=== PATIENT | male | born 1930 | race Asian ===

== ENCOUNTER 2017-10-26 10:14 | Inpatient (IN) | payer MEDICARE, OTHER ==
[~2017-10-26] VITALS: Ht 195.6 cm; Wt 63.5 kg
--- NOTE | 2017-10-26 10:22 | NUR ---
MED RECON WAS PREPARED WITH THE HELP OF GRAND SON LOOKING INTO PT DAILY BEEF BONER THAT IS CHADIAN/[place]IBR[place]ARIAN.
[2017-10-26] MEDS ORDERED: ENOXAPARIN SODIUM 30 MG/0.3 ML DISP.SYRIN SUBCUT ONE (10:30)
[2017-10-26] MEDS ORDERED: ASPIRIN 325 MG TABLET PO ONE (10:30)
[2017-10-26] MEDS ORDERED: METOPROLOL TARTRATE 50 MG TABLET PO ONE (10:30)
[2017-10-26] MEDS ORDERED: NITROGLYCERIN OINT 1 GM PACKET TP ONE ×2 (10:30→10:34)
[2017-10-26] MEDS ORDERED: ASPIRIN 325 MG TABLET ONE (10:32)
[2017-10-26] MEDS ORDERED: METOPROLOL TARTRATE 50 MG TABLET ONE (10:33)
[2017-10-26] MEDS ORDERED: ENOXAPARIN SODIUM 80 MG/0.8 ML DISP.SYRIN SQ ONE (10:37)
[2017-10-26] MEDS ORDERED: CLON0.1T PO (10:40)
[2017-10-26] MEDS ORDERED: VALS40TA4 PO (10:40)
[2017-10-26] MEDS ORDERED: ATEN25TA PO (10:40)
[2017-10-26] MEDS ORDERED: ASPI-1169 PO (10:40)
--- NOTE | 2017-10-26 10:40 | NUR ---
MED RECON PREPARED TO THE BEST KNOWLEDGE OF THE GRANDSON LOOKING AT THE PT DAILY PLANNERR WHICH IS CHINESES LANGUAGE.
[2017-10-26 10:48] LABS: BASOPHILS % (AUTO) 0.4 % (0.0-2.0); EOSINOPHILS % (AUTO) 0.6 % (0.0-7.0); HEMATOCRIT 38.1 % (36.7-47.1); LYMPHOCYTES # (AUTO) 0.9 K/uL (20.0-40.0); LYMPHOCYTES % (AUTO) 19.6 % (20.5-51.5); MEAN CORPUSCULAR HEMOGLOBIN 32.8 uug (23.8-33.4); MEAN CORPUSCULAR HGB CONC 34 g/dL (32.5-36.3); MEAN CORPUSCULAR VOLUME 95.7 fL (73.0-96.2); MONOCYTES # (AUTO) 0.4 K/uL (2.0-10.0); MONOCYTES % (AUTO) 8.4 % (0.0-11.0); NEUTROPHILS # (AUTO) 3.3 K/uL (1.8-8.9); PLATELET COUNT (AUTO) 146 K/uL (152-348); RED BLOOD CELL COUNT(AUTO) 3.97 MIL/uL (4.06-5.63); WHITE BLOOD COUNT (AUTO) 4.6 K/uL (3.6-10.2)
[2017-10-26 10:54] LABS: CARBON DIOXIDE 24 mmol/L (21-32); CHLORIDE 106 mmol/L (98-107); CREATININE 1.8 mg/dL (0.6-1.3); GLUCOSE 155 mg/dL (74-106); POTASSIUM 4.5 mmol/L (3.5-5.1); UREA NITROGEN, BLOOD 36 mg/dL (7-18)
[2017-10-26 11:09] LABS: ALANINE AMINOTRANSFERASE 20 U/L (16-63); ALKALINE PHOSPHATASE 41 U/L (50-136); ASPARTATE AMINOTRANSFERASE 15 U/L (15-37); BILIRUBIN,DIRECT 0.1 mg/dL (0.0-0.2); BILIRUBIN,TOTAL 0.7 mg/dL (0.2-1.0); TOTAL PROTEIN, SERUM 7.2 g/dL (6.4-8.2)
--- NOTE | 2017-10-26 12:21 | NUR ---
REPORT GIVEN TO ANTOLIN. PENDING TRANSFER TO TELE UNIT.
--- NOTE | 2017-10-26 12:30 | NUR ---
KRISTINA PALMER ENVELOPE STAMPING MACHINE OPERATOR AT BEDSIDE.
--- NOTE | 2017-10-26 12:38 | NUR ---
Pt admitted to Tele floor under Jason Segundo NP. Belongings list completed.
[2017-10-26 13:00] VITALS: BP 133/65
[2017-10-26] MEDS ORDERED: IV NS 1000 ML 1,000 ML IV PRN (13:07)
[2017-10-26] MEDS ORDERED: ACETAMINOPHEN 325 MG TABLET PO PRN (13:15)
[2017-10-26] MEDS ORDERED: Z GUARD REMEDY PASTE 57 GM TUBE TOP PRN (13:15)
[2017-10-26] MEDS ORDERED: NITROGLYCERIN 0.4 MG/TAB BOTTLE SL PRN (13:15)
[2017-10-26] MEDS ORDERED: HYDROCODONE/APAP 5-325MG TABLET PO PRN (13:15)
[2017-10-26] MEDS ORDERED: MAGNESIUM HYDROXIDE 30 ML LIQUID UDC PO PRN (13:15)
[2017-10-26] MEDS ORDERED: ONDANSETRON 4 MG/2 ML VIAL IV PRN (13:15)
--- NOTE | 2017-10-26 13:15 | NUR ---
NEW PATIENT FROM ER TO ROOM 219 AWAKE ALERT /SOME FORGETFUL AND DEAF/TAZLINA BUT COOPERATE WELL RAMESH WEAKNESS ON FALL AND ASPIRATION PRECAUTION BED ALARM ON AND CALL LIGHT IN REACH NO SOB OR CHEST PAIN AT THIS TIME VS TAKEN STABLE RA O2 SAT WAS 97%
--- NOTE | 2017-10-26 13:50 | NUR ---
Jacoby ARZATE SEEN LAB RESULT AND ORDER IN CHART
--- NOTE | 2017-10-26 14:00 | NUR ---
2 D ECCHO CARDIOGRAM AT BEDSIDE DAYA PROCEDURE WELL
[2017-10-26 16:05] VITALS: BP 115/61
--- NOTE | 2017-10-26 17:00 | NUR ---
DR TAM SEEN PATIENT AND FAMILY NEW ORDER FOR LAB AND STRESS TEST IN AM NPO AFTER MID NIGHT EXPLAINED TO PATIENT VERBALIZES UNDERSTAND EAT DINNER WELL NO PAIN OR SOB AT THIS TIME
[2017-10-26 17:32] LABS: *CREATININE,URINE 55.6 mg/dL (30-125)
--- NOTE | 2017-10-26 18:00 | NUR ---
HEMODYNAMIC STATUS STABLE NO ACUTE DISTRESS SAFETY MEASURE PROVIDED CALL LIGHT IN REACH
[2017-10-26 18:39] LABS: *BILIRUBIN,URIN NEGATIVE (NEGATIVE); *BLOOD, URINE Trace-lysed (NEGATIVE); *CLARITY,URINE CLEAR (CLEAR); *COLOR,URINE YELLOW (YELLOW); *KETONES,URINE NEGATIVE (NEGATIVE); *PROTEIN,URINE NEGATIVE (NEGATIVE); *UROBILINOGEN,URINE 0.2 E.U./dl (NORMAL); LEUKOCYTE ESTERASE ,URINE NEGATIVE (NEGATIVE); NITRITE, URINE NEGATIVE (NEGATIVE); PH,URINE 5.5 (5.0-8.0); UGLUCOSE NEGATIVE (NEGATIVE)
[2017-10-26 18:42] LABS: MUCUS,URINE FEW /LPF (0-FEW); RBC,URINE 0-3 /HPF (0-3); WBC,URINE 0-3 /HPF (0-3)
[2017-10-26 19:08] LABS: HEMATOCRIT 35.8 % (36.7-47.1); HEMOGLOBIN 12.3 g/dL (12.5-16.3)
[2017-10-26 20:14] VITALS: BP 113/64
[2017-10-27 00:07] VITALS: BP 107/62
[2017-10-27 04:37] VITALS: BP 135/75
--- NOTE | 2017-10-27 05:30 | NUR ---
PT DENIES ANY PAIN OVERNIGHT, KEPT NPO FOR LEXISCAN, WENT TO RADIOLOGY @ 0625 CAME BACK 0655. SLEPT WELL OVERNIGHT SINUS RHYTHM ON MONITOR. VOIDING IN URINAL NO BLOOD NOTED. WILL CONTINUE TO MONITOR,VSS,AFEBRILE
[2017-10-27 06:56] LABS: BASOPHILS % (AUTO) 0.3 % (0.0-2.0); EOSINOPHILS # (AUTO) 0.1 K/uL (0.0-0.7); EOSINOPHILS % (AUTO) 1.1 % (0.0-7.0); HEMATOCRIT 36.7 % (36.7-47.1); HEMOGLOBIN 12.6 g/dL (12.5-16.3); LYMPHOCYTES # (AUTO) 1.2 K/uL (20.0-40.0); LYMPHOCYTES % (AUTO) 19.2 % (20.5-51.5); MEAN CORPUSCULAR HGB CONC 35 g/dL (32.5-36.3); MEAN CORPUSCULAR VOLUME 95.9 fL (73.0-96.2); MONOCYTES # (AUTO) 0.6 K/uL (2.0-10.0); MONOCYTES % (AUTO) 10.4 % (0.0-11.0); NEUTROPHILS # (AUTO) 4.2 K/uL (1.8-8.9); PLATELET COUNT (AUTO) 145 K/uL (152-348); RED BLOOD CELL COUNT(AUTO) 3.83 MIL/uL (4.06-5.63); WHITE BLOOD COUNT (AUTO) 6.1 K/uL (3.6-10.2)
[2017-10-27 07:14] LABS: CARBON DIOXIDE 24 mmol/L (21-32); CHLORIDE 107 mmol/L (98-107); CHOLESTEROL 157 mg/dL (<200); CREATININE 1.7 mg/dL (0.6-1.3); GLUCOSE 110 mg/dL (74-106); HDL CHOLESTEROL 44 mg/dL (40-60); MAGNESIUM 2.1 mg/dL (1.8-2.4); PHOSPHOROUS 2.9 mg/dL (2.5-4.9); POTASSIUM 4.1 mmol/L (3.5-5.1); TRIGLYCERIDES 102 MG/DL (30-150); UREA NITROGEN, BLOOD 29 mg/dL (7-18)
[2017-10-27 07:25] LABS: THYROID STIMULATING HORMONE 1.142 mIU/mL (0.358-3.740)
[2017-10-27] MEDS ORDERED: REGADENOSON 0.4 MG/5 ML PREFILLED SYR IV ONE (08:00)
--- NOTE | 2017-10-27 08:00 | NUR ---
NPO TILL FURTHER ORDER FOR LEXISCAN, NO SOB OR CHEST PAIN
[2017-10-27] MEDS ORDERED: ASPIRIN 81 MG TAB.CHEW PO SCH (09:00)
[2017-10-27] MEDS ORDERED: ATENOLOL 25 MG TABLET PO SCH (09:00)
[2017-10-27 11:57] VITALS: BP 126/55
--- NOTE | 2017-10-27 12:00 | NUR ---
SEEN BY HOSPITALIST WITH DC ORDER, WIRER PASSENGER CAR AND DAUGHTER AT BEDSIDE MADE AWARE
[2017-10-27 12:07] LABS: *BILIRUBIN,URIN NEGATIVE (NEGATIVE); *BLOOD, URINE 1+ (NEGATIVE); *CLARITY,URINE CLEAR (CLEAR); *COLOR,URINE YELLOW (YELLOW); *KETONES,URINE NEGATIVE (NEGATIVE); *PROTEIN,URINE NEGATIVE (NEGATIVE); *UROBILINOGEN,URINE 0.2 E.U./dl (NORMAL); LEUKOCYTE ESTERASE ,URINE NEGATIVE (NEGATIVE); NITRITE, URINE NEGATIVE (NEGATIVE); PH,URINE 5.5 (5.0-8.0); UGLUCOSE NEGATIVE (NEGATIVE)
[2017-10-27 12:16] LABS: BACTERIA,URINE NONE SEEN /HPF (NONE SEEN); MUCUS,URINE FEW /LPF (0-FEW); RBC,URINE 0-3 /HPF (0-3); SQUAMOUS EPITHELIAL CELL,UR FEW /HPF (NONE SEEN); WBC,URINE 0-3 /HPF (0-3)
[2017-10-27] MEDS ORDERED: CLON0.1T PO (13:49)
--- NOTE | 2017-10-27 14:32 | NUR ---
DISCHARGED HOME STABLE WITH MEDICATION AND FOLLOW-UP INSTRUCTION WITH OWEN LOOMIS
[2017-10-27 15:16] LABS: *URINE TOTAL PROTEIN RANDOM 10.5 mg/dL (<150/24HR)
== END 2017-10-27 14:30 | disposition home or self-care (01) | DRG 305 ==
LOC: ER 10:21 → TELE 12:42 → MED 10-27 13:44
PROVIDERS: ADMIT Internal Medicine; ATTEND Internal Medicine
DX: I16.0 Hypertensive urgency (principal); D69.6 Thrombocytopenia, unspecified; I34.0 Nonrheumatic mitral (valve) insufficiency; H91.90 Unspecified hearing loss, unspecified ear; R04.0 Epistaxis; R73.9 Hyperglycemia, unspecified; I12.9 Hypertensive chronic kidney disease with stage 1 through stage 4 chronic kidney disease, or unspecified chronic kidney disease; N18.9 Chronic kidney disease, unspecified
CPT/HCPCS: 36415; 70030-TC; 71045; 76770; 78452; 83735; 84100; 84156; 84300; 84443; 85018; 85025; 85730; 87040; 93005; 93307; A4663; A9502; J1650; J2785; J7030

== ENCOUNTER 2019-03-21 20:30 | Emergency (ER) | payer MEDICARE, OTHER ==
[~2019-03-21] VITALS: Ht 172.7 cm; Wt 68.0 kg
[~2019-03-21 20:30] MED LIST: ASPI-1169 PO; ATEN25TA PO; CLON0.1T PO
--- NOTE | 2019-03-21 21:00 | NUR ---
Patient ambulated with stable gait. A/Ox4. Interpretation performed by grandson, patient speaks [place]. No neuro deficits noted. Patient bib grandson for c/o generalized weakness since this morning. Respiratory even and unlabored, no cough no sob noted. No s/sx of cardiovascular distress, patient is warm to the touch, and perfusing adequately. Denies any n/v/d. Patient in bed at lowest position, sr upx2, call light withi reach. Fall precautions implemented per protocol. Grandson and at bedside accompanying patient.
[2019-03-21] MEDS ORDERED: IV NORMAL SALINE 1000 ML BAG IV ONE (21:45)
[2019-03-21] MEDS ORDERED: PIPERACILLIN SODIUM/TAZOBACTAM 3.375 G in IV DEXTROSE 5% 50 ML IV ONE (21:45)
[2019-03-21] MEDS ORDERED: LEVOFLOXACIN 500 MG/D5W 100ML PIGGYBACK IV ONE (21:45)
[2019-03-21 21:59] LABS: BASOPHILS % (AUTO) 0.3 % (0.0-2.0); EOSINOPHILS # (AUTO) 0.1 K/uL (0.0-0.7); EOSINOPHILS % (AUTO) 2.2 % (0.0-7.0); HEMATOCRIT 34.5 % (36.7-47.1); LYMPHOCYTES # (AUTO) 0.9 K/uL (20.0-40.0); LYMPHOCYTES % (AUTO) 17.8 % (20.5-51.5); MEAN CORPUSCULAR HEMOGLOBIN 32.7 uug (23.8-33.4); MEAN CORPUSCULAR HGB CONC 35 g/dL (32.5-36.3); MEAN CORPUSCULAR VOLUME 94.1 fL (73.0-96.2); MONOCYTES # (AUTO) 0.6 K/uL (2.0-10.0); MONOCYTES % (AUTO) 11.8 % (0.0-11.0); NEUTROPHILS # (AUTO) 3.5 K/uL (1.8-8.9); NEUTROPHILS % (AUTO) 67.9 % (38.5-71.5); PLATELET COUNT (AUTO) 147 K/uL (152-348); RED BLOOD CELL COUNT(AUTO) 3.67 MIL/uL (4.06-5.63); WHITE BLOOD COUNT (AUTO) 5.1 K/uL (3.6-10.2)
[2019-03-21] MEDS ORDERED: LEVOFLOXACIN 500 MG/D5W 100 ML ONE (22:02)
[2019-03-21] MEDS ORDERED: PIPERACILLIN/TAZOBACTAM/D5W 50 ML IV ONE (22:02)
[2019-03-21] MEDS ORDERED: LEVO5TAB13 PO (22:03)
[2019-03-21] MEDS ORDERED: VALS80TA2 PO (22:03)
[2019-03-21 22:07] LABS: CARBON DIOXIDE 26 mmol/L (21-32); CHLORIDE 105 mmol/L (98-107); CREATININE 2.2 mg/dL (0.6-1.3); GLUCOSE 112 mg/dL (74-106); POTASSIUM 4.6 mmol/L (3.5-5.1); UREA NITROGEN, BLOOD 41 mg/dL (7-18)
[2019-03-21 22:19] LABS: ALANINE AMINOTRANSFERASE 8 U/L (16-63); ALKALINE PHOSPHATASE 52 U/L (50-136); ASPARTATE AMINOTRANSFERASE 16 U/L (15-37); BILIRUBIN,DIRECT 0.1 mg/dL (0.0-0.2); BILIRUBIN,TOTAL 0.7 mg/dL (0.2-1.0); TOTAL PROTEIN, SERUM 7.4 g/dL (6.4-8.2)
--- NOTE | 2019-03-21 22:35 | NUR ---
Call placed to [facility], Dr. Do, Adam has been paged.
[2019-03-21 22:36] LABS: *BILIRUBIN,URIN NEGATIVE (NEGATIVE); *BLOOD, URINE TRACE (NEGATIVE); *CLARITY,URINE CLEAR (CLEAR); *COLOR,URINE YELLOW (YELLOW); *KETONES,URINE NEGATIVE (NEGATIVE); *UROBILINOGEN,URINE 0.2 E.U./dl (NORMAL); LEUKOCYTE ESTERASE ,URINE NEGATIVE (NEGATIVE); NITRITE, URINE NEGATIVE (NEGATIVE); UGLUCOSE NEGATIVE (NEGATIVE)
[2019-03-21 22:49] LABS: BACTERIA,URINE NONE SEEN /HPF (NONE SEEN); RBC,URINE 0-3 /HPF (0-3); SQUAMOUS EPITHELIAL CELL,UR FEW /HPF (NONE SEEN); WBC,URINE 0-3 /HPF (0-3)
--- NOTE | 2019-03-21 22:53 | NUR ---
Dr. Robles on the line with Dr. Booth discussing patient case.
--- NOTE | 2019-03-21 22:56 | NUR ---
Patient is accepted by Dr. Robles, and will be transported to [facility].
--- NOTE | 2019-03-21 23:36 | NUR ---
EDIT: Levaquin 500mg/D5W IV stop time @ [id number]
--- NOTE | 2019-03-21 23:40 | NUR ---
hKushboo from [facility] returned call regarding transfer information. Patient will be going to [facility], [place] Room 320A, number for report is [phone], trip authorization number [id number]. Dr. Robles will be the accepting physician.
--- NOTE | 2019-03-21 23:45 | NUR ---
Fely from [facility] has ETA transport 45 minutes, TRIP#[id number]
--- NOTE | 2019-03-22 00:26 | NUR ---
Report given to PILI Singletary at [facility].
--- NOTE | 2019-03-22 00:30 | NUR ---
Per [facility], Dr. Booth, patient is ready for discharge despite the official unread CXR. Dr. Booth stated that he went downstairs to look at the images and did not find anything suspicious.
--- NOTE | 2019-03-22 00:32 | NUR ---
Left message for patients notifying her that the patient will be leaving and heading over to [facility].
--- NOTE | 2019-03-22 00:33 | NUR ---
Patient Tranfers to outside Facility Physician: Dr. Robles Location: [facility] - Medical Surgical Bed #320A, Nurse- May
== END 2019-03-22 00:39 | disposition short-term general hospital (02) ==
LOC: ER 20:30
DX: R53.1 Weakness (principal); I10 Essential (primary) hypertension; I25.2 Old myocardial infarction; E11.9 Type 2 diabetes mellitus without complications; Z79.82 Long term (current) use of aspirin; Z79.899 Other long term (current) drug therapy
CPT/HCPCS: 36415; 71045; 80048; 80076; 81000; 81001; 83605; 83880; 84484; 85025; 85730; 87040 ×2; 87086; 93005; 96365; 96367; 99285; J1956; J2543; 70030-TC; A4663; J3490; J7030